=== PATIENT | female | born 1990 | race African-American/Black ===

== ENCOUNTER 2018-08-15 17:41 | Emergency (ER) | payer MEDICAID ==
[~2018-08-15] VITALS: Ht 160 cm; Wt 74.0 kg
[2018-08-15] MEDS ORDERED: KETOROLAC 60MG/2ML VIAL IM ONE (22:00)
[2018-08-16 00:03] VITALS: BP 124/84
== END 2018-08-16 00:13 | disposition home or self-care (01) ==
LOC: ER 17:41
DX: S63.611A Unspecified sprain of left index finger, initial encounter (principal); M79.18 Myalgia, other site; V49.9XXA Car occupant (driver) (passenger) injured in unspecified traffic accident, initial encounter; Y93.89 Activity, other specified; Y92.410 Unspecified street and highway as the place of occurrence of the external cause
CPT/HCPCS: 73140; 81025; 99284